=== PATIENT | male | born 1965 | race Caucasian/White ===

== ENCOUNTER 2017-05-19 10:00 | Emergency (ER) | payer BC, OTHER ==
[~2017-05-19] VITALS: Ht 172.7 cm; Wt 70.5 kg
[2017-05-19] MEDS ORDERED: ASPI81TA85 PO (10:18)
[2017-05-19 12:01] VITALS: BP 124/76
--- NOTE | 2017-05-19 13:45 | REP ---
Right lower extremity Duplex Doppler venous ultrasound: Real time compression and duplex Doppler interrogation of the right lower extremity deep venous system is performed. The right common femoral, superficial femoral and popliteal veins are fully compressible with transducer pressure and demonstrate normal spontaneous and phasic flow, without evidence of deep venous thrombosis. Impression: No evidence of deep venous thrombosis of the right lower extremity femoral popliteal venous system. Signed by Eric Romano MD 05/19/2017 01:37 P
== END 2017-05-19 12:12 | disposition home or self-care (01) ==
LOC: M ED 10:00
DX: S76.901A Unspecified injury of unspecified muscles, fascia and tendons at thigh level, right thigh, initial encounter (principal); X58.XXXA Exposure to other specified factors, initial encounter; Y92.89 Other specified places as the place of occurrence of the external cause; Y93.89 Activity, other specified; Y99.8 Other external cause status; Z86.718 Personal history of other venous thrombosis and embolism; Z79.82 Long term (current) use of aspirin; Z88.0 Allergy status to penicillin

== ENCOUNTER → 2017-05-19 | Outpatient (CLI) | payer BC ==
[~2017-05-19] MED LIST: ASPI81TA85 PO
== END ==
LOC: M LAB 12:34
PROVIDERS: ATTEND Urology
DX: N20.0 Calculus of kidney (principal)